=== PATIENT | female | born 1995 | race Caucasian/White ===

== ENCOUNTER 2018-05-04 05:32 | Emergency (ER) | END 2018-05-04 08:24 | disposition home or self-care (01) ==

== ENCOUNTER 2018-05-14 00:58 | Emergency (ER) | END 2018-05-14 04:27 | disposition home or self-care (01) ==

== ENCOUNTER 2018-05-14 11:38 | Day surgery (SDC) | END 2018-05-14 18:42 | disposition home or self-care (01) ==